=== PATIENT | male | born 1975 | race Caucasian/White ===

== ENCOUNTER 2018-12-24 14:58 | Emergency (ER) | payer OTHER ==
[2018-12-24 15:33] VITALS: BP 130/76
--- NOTE | 2018-12-24 15:58 | UC ---
FLU HPI - HPI Summary HPI Summary: 43 year old male with no PMH, + 1 PPD tob use, presents with runny nose, sore throat, cough- productive, fever/ chills, deep chest pain with coughing. no SOB. no recent illnesses, abx use. no lightheadedness. Difficulty sleeping due to cough. + muscle aches, fatigue. - History of Current Complaint Chief Complaint: UCRespiratory Stated Complaint: COUGH,RUNNY NOSE, SINUS COMPLAINT Time Seen by Provider: 12/24/18 15:41 Hx Obtained From: Patient Severity Currently: Mild Severity Initially: Mild Pain Intensity: 3 Pain Scale Used: 0-10 Numeric Associated Signs & Symptoms: Positive: Fever, F/C, Cough, Sore Throat, Nasal Congestion Related Hx: Smoking - Allergy/Home Medications Allergies/Adverse Reactions: Allergies Allergy/AdvReac Type Severity Reaction Status Date / Time Penicillins Allergy Unknown Unknown Verified 12/24/18 15:24 Reaction Details Home Medications: Home Medications Ibuprofen TAB* [Advil TAB*] 200 mg PO Q6H PRN 12/24/18 [History Confirmed ] PMH/Surg Hx/FS Hx/Imm Hx Previously Healthy: Yes - Surgical History Surgical History: Yes Surgery Procedure, Year, and Place: BILATERAL CARPAL TUNNEL REPAIR. VASECTOMY - Family History Known Family History: Positive: Non-Contributory - Social History Occupation: Employed Full-time Alcohol Use: Daily Alcohol Amount: 4 BEERS A DAY Substance Use Type: Marijuana Substance Use Comment - Amount & Last Used: OCCASIONAL Smoking Status (MU): Heavy Every Day Tobacco Smoker Type: Cigarettes Amount Used/How Often: 1 PPD Review of Systems All Other Systems Reviewed And Are Negative: Yes Constitutional: Positive: Fever, Chills, Fatigue ENT: Positive: Sore Throat, Nasal Discharge, Sinus Congestion Respiratory: Positive: Cough Musculoskeletal: Positive: Myalgia Is Patient Immunocompromised?: No Physical Exam Triage Information Reviewed: Yes Appearance: No Pain Distress, Well-Nourished, Ill-Appearing - moderate Vital Signs: Initial Vital Signs Temp 98.7 F 12/24/18 15:25 Pulse 71 12/24/18 15:25 Resp 16 12/24/18 15:25 BP 130/76 12/24/18 15:25 Pulse Ox 100 12/24/18 15:25 Vital Signs Reviewed: Yes Eyes: Positive: Conjunctiva Clear ENT: Positive: Pharyngeal erythema - mild, TMs normal - minimal erythema L tm., Uvula midline. Negative: Tonsillar swelling, Tonsillar exudate, Sinus tenderness Neck: Positive: Supple, Nontender, No Lymphadenopathy. Negative: Nuchal Rigidity, Enlarged Nodes @ Respiratory: Positive: Chest non-tender, Lungs clear, Normal breath sounds, No respiratory distress, No accessory muscle use. Negative: Respiratory distress, Crackles, Rhonchi, Stridor, Wheezing Cardiovascular: Positive: RRR Musculoskeletal Exam: Normal Neurological Exam: Normal Psychological Exam: Normal Flu Course/Dx - Course Course Of Treatment: - Antibiotics for possible secondary illness, pneumonia - Increase fluid intake - Over the counter medications for symptoms ie NyQuil for cough at night. - Lyme titers drawn, will be called if positive - Flu testing: negative - Differential Dx/Diagnosis Differential Diagnosis/HQI/PQRI: Influenza, Upper Respiratory Infection Provider Diagnosis: Pneumonia Discharge ED - Sign-Out/Discharge Documenting (check all that apply): Patient Departure All imaging exams completed and their final reports reviewed: No Studies - Discharge Plan Condition: Good Disposition: HOME Prescriptions: Azithromyxin JEANNETTE (NF) [Z-Jeannette (Zithromax) 250 mg tabs #6] 2 tab PO .TODAY, THEN 1 DAILY #6 tab Patient Education Materials: Bacterial Pneumonia (ED) Referrals: Cachorro Stark MD [Primary Care Provider] - Additional Instructions: - Antibiotics for possible secondary illness, pneumonia - Increase fluid intake - Over the counter medications for symptoms ie NyQuil for cough at night. - Lyme titers drawn, will be called if positive - Flu testing: negative - Billing Disposition and Condition Condition: GOOD Disposition: Home
[2018-12-24 16:09] LABS: Influenza A Molecular NEGATIVE (Negative); Influenza B Molecular NEGATIVE (Negative)
== END 2018-12-24 16:16 | disposition home or self-care (01) ==
LOC: UCCORT 14:58
DX: J18.9 Pneumonia, unspecified organism (principal); Z88.0 Allergy status to penicillin; F17.210 Nicotine dependence, cigarettes, uncomplicated
CPT/HCPCS: 36415; 86618; 99202; G0463